=== PATIENT | female | born 1960 | race Caucasian/White ===

== ENCOUNTER 2019-02-27 19:39 | Inpatient (IN) | payer SELFPAY ==
[~2019-02-27] VITALS: Ht 172.7 cm; Wt 107.8 kg
[~2019-02-27 19:39] MED LIST: AMOX1TAB10 PO; HYDR-4011 PO; IBUP-1542 PO
[2019-02-27 19:43] VITALS: Ht 172.7 cm; Wt 107.8 kg
--- NOTE | 2019-02-27 20:48 | ERD ---
ER Documentation Chief Complaint Chief Complaint R ear pain and ST x 1 week HPI 58-year-old female, previously healthy, presents the emergency department, complaining of 1 week of progressive worsening of right ear pain, described as throbbing, constant, associated with hearing loss, sore throat and headache; the symptoms are worsened by changes in position. The patient reports sudden onset of right ear drainage today. Mrs. Lafleur denies fever, chills; no reports of dizziness, vertigo, neck pain, no nausea or vomiting. No history of previous episodes, no recent history of swimming or flying. ROS All systems reviewed and are negative except as per history of present illness. Medications Home Meds Active Scripts Hydrocodone/Acetaminophen ([place] 5-325 Tablet) 1 Each Tablet, 1 TAB PO Q6H PRN for PAIN, #12 TAB Prov:TRES FIGUEROA MD 02/27/19 Ibuprofen* (Motrin*) 600 Mg Tab, 600 MG PO Q8, #20 TAB Prov:TRES FIGUEROA MD 02/27/19 Amoxicillin/Potassium Clav (Amox-Clav 875-125 mg Tablet) 875-125 mg Tab, 1 TAB PO BID for 7 Days, #14 TAB Prov:TRES FIGUEROA MD 02/27/19 Allergies Allergies: Coded Allergies: No Known Allergy (Unverified , 02/27/19) PMhx/Soc Medical and Surgical Hx: pt denies Medical Hx, pt denies Surgical Hx Hx Alcohol Use: No Hx Substance Use: No Hx Tobacco Use: No Smoking Status: Never smoker FmHx Family History: No diabetes, No coronary disease Physical Exam Vitals Vital Signs Date Temp Pulse Resp B/P (MAP) Pulse Ox O2 O2 Flow FiO2 Time Delivery Rate 02/28/19 90 18 140/77 100 Room Air 11:00 (98) 90 02/28/19 90 18 116/77 100 Room Air 07:00 (90) 02/28/19 69 16 117/68 95 Nasal 3.0 05:54 (84) Cannula 02/28/19 98.8 92 19 127/71 96 Room Air 00:25 (89) 02/27/19 97.0 115 24 133/79 96 19:43 (97) Physical Exam Patient alert, oriented, vital signs stable except for mild tachycardia, likely due to pain. HEENT: Normocephalic, atraumatic. EYES: PERRLA, EOMI, Sclera and conjunctiva appear normal. EARS: right ear with significant effusion, unable to visualize TM, tenderness over the TMJ area. Contralateral ear normal. THROAT: Erythematous oropharynx. NECK: Supple, No lymphadenopathy. Full ROM without pain or tenderness. HEART: RRR, no rubs, murmurs, clicks or gallops. LUNGS: Clear to auscultation. ABDOMEN: Soft, non-tender without masses or hepatosplenomegaly. EXTREMITIES: No edema bilaterally. BACK: Full ROM, no deformity, normal back exam NEURO: Cranial nerves grossly intact, no motor or sensory deficit Result Diagram: 02/28/195 02/28/195 Results 24 hrs Laboratory Tests Test 02/28/19 00:23 02/28/19 04:15 White Blood Count 19.4 10^3/ul 13.3 10^3/ul Red Blood Count 4.88 10^6/ul 4.58 10^6/ul Hemoglobin 15.2 g/dl 14.3 g/dl Hematocrit 45.1 % 41.9 % Mean Corpuscular Volume 92.4 fl 91.5 fl Mean Corpuscular Hemoglobin 31.1 pg 31.2 pg Mean Corpuscular Hemoglobin Concent 33.7 g/dl 34.1 g/dl Red Cell Distribution Width 12.0 % 12.2 % Platelet Count 182 10^3/UL 151 10^3/UL Mean Platelet Volume 11.5 fl 11.7 fl Immature Granulocytes % 0.600 % 0.500 % Neutrophils % 85.9 % 81.2 % Lymphocytes % 8.4 % 10.7 % Monocytes % 4.7 % 6.9 % Eosinophils % 0.1 % 0.3 % Basophils % 0.3 % 0.4 % Nucleated Red Blood Cells % 0.0 /100WBC 0.0 /100WBC Immature Granulocytes # 0.110 10^3/ul 0.060 10^3/ul Neutrophils # 16.7 10^3/ul 10.8 10^3/ul Lymphocytes # 1.6 10^3/ul 1.4 10^3/ul Monocytes # 0.9 10^3/ul 0.9 10^3/ul Eosinophils # 0.0 10^3/ul 0.0 10^3/ul Basophils # 0.1 10^3/ul 0.1 10^3/ul Nucleated Red Blood Cells # 0.0 10^3/ul 0.0 10^3/ul Sodium Level 140 mmol/L 140 mmol/L Potassium Level 4.2 mmol/L 3.8 mmol/L Chloride Level 102 mmol/L 103 mmol/L Carbon Dioxide Level 30 mmol/L 27 mmol/L Anion Gap 8 10 Blood Urea Nitrogen 11 mg/dl 12 mg/dl Creatinine 0.70 mg/dl 0.69 mg/dl Est Glomerular Filtrat Rate mL/min > 60 mL/min > 60 mL/min Glucose Level 133 mg/dl 138 mg/dl Calcium Level 9.8 mg/dl 9.7 mg/dl Total Bilirubin 0.8 mg/dl 0.9 mg/dl Direct Bilirubin 0.00 mg/dl 0.00 mg/dl Indirect Bilirubin 0.8 mg/dl 0.9 mg/dl Aspartate Amino Transf (AST/SGOT) 33 IU/L 29 IU/L Alanine Aminotransferase (ALT/SGPT) 50 IU/L 44 IU/L Alkaline Phosphatase 67 IU/L 66 IU/L Total Protein 8.3 g/dl 7.9 g/dl Albumin 4.6 g/dl 4.4 g/dl Globulin 3.70 g/dl 3.50 g/dl Albumin/Globulin Ratio 1.24 1.25 Prothrombin Time 14.6 Sec Prothrombin Time Ratio 1.1 INR International Normalized Ratio 1.13 Activated Partial Thromboplast Time 30.7 Sec Hemoglobin A1c 6.1 % Lactic Acid Level 1.0 mmol/L Triglycerides Level 92 mg/dl Cholesterol Level 182 mg/dl LDL Cholesterol, Calculated 121 mg/dl HDL Cholesterol 43 mg/dl Cholesterol/HDL Ratio 4.2 RATIO Thyroid Stimulating Hormone (TSH) 7.500 MIU/L Current Medications Medications Dose Sig/Tha Start Time Status Last (Trade) Ordered Route PRN Stop Time Admin Dose Reason Admin 1 tab ONCE ONCE 02/27/19 Cancel Acetaminophen PO 21:30 02/27/19 / 21:31 Hydrocodone Bitart ([place] (5/325)) Ibuprofen 600 mg ONCE ONCE 02/27/19 Cancel (Motrin) PO 21:30 02/27/19 21:31 Ondansetron 4 mg ONCE STAT 02/27/19 Cancel HCl (Zofran ODT 21:14 02/27/19 Odt) 21:15 Clindamycin 50 ml @ 50 ONCE IVPB 02/27/19 DC 02/27/19 HCl/ mls/hr 21:30 02/27/19 22:15 Dextrose 22:29 Ketorolac 15 mg ONCE STAT 02/27/19 DC 02/27/19 Tromethamine IV 21:28 02/27/19 21:40 (Toradol) 21:37 Morphine 2 mg ONCE STAT 02/27/19 DC 02/27/19 Sulfate IV 21:28 02/27/19 21:41 (morphine) 21:36 Ondansetron 4 mg ONCE STAT 02/27/19 DC 02/27/19 HCl (Zofran IV 21:28 02/27/19 21:40 Inj) 21:36 Morphine 4 mg ONCE STAT 02/28/19 DC 02/28/19 Sulfate IV 00:14 02/28/19 00:24 (morphine) 00:15 Ondansetron 4 mg BRIDGE ORDER 02/28/19 HCl (Zofran PRN IV 03:30 03/01/19 Inj) NAUSEA/VOMITI 03:29 NG 650 mg ER BRIDGE 02/28/19 Acetaminophen PRN PO 03:30 03/01/19 (Tylenol .MILD PAIN 03:29 Tab) 1-3 OR TEMP Vancomycin VANCOMYCIN PER 02/28/19 HCl (Vanco PER PHARMACY PROTOCOL XX 04:00 Iv Per Pharmacy) Piperacillin 100 ml @ Q6 IVPB 02/28/19 DC Sod/ 200 mls/hr 06:00 02/28/19 Tazobactam 09:28 Sod Vancomycin 500 ml @ ONCE ONCE 02/28/19 DC 02/28/19 HCl 2 125 mls/hr IVPB 05:00 02/28/19 05:52 gm/Sodium 08:59 Chloride Sodium 1,000 ml @ [id number] IV 02/28/19 02/28/19 Chloride 70 mls/hr 03:43 10:30 IV Flush 3 ml PER 02/28/19 (NS 3 ml) PROTOCOL IV 04:00 Ondansetron 4 mg Q6H PRN 02/28/19 HCl (Zofran IV 04:00 Inj) NAUSEA/VOMITI NG 650 mg Q6H PRN 02/28/19 Acetaminophen PO .PAIN 1-3 04:00 (Tylenol OR TEMP Tab) 1 tab Q6H PRN 02/28/19 Acetaminophen PO .MOD PAIN 04:00 / 4-6 Hydrocodone Bitart ([place] (5/325)) Morphine 2 mg Q4H PRN 02/28/19 02/28/19 Sulfate IV .SEVERE 04:00 09:43 (morphine) PAIN 7-10 Docusate 100 mg Q12H PRN 02/28/19 Sodium PO 04:00 (Colace) .CONSTIPATION Bisacodyl 5 mg DAILY PRN 02/28/19 (Dulcolax) PO 04:00 .CONSTIPATION 250 ml @ Q24H IVPB 02/28/19 Vancomycin/So 83.333 mls/ 17:00 dium hr Chloride VANCOMYCIN 1600 ONCE 03/01/19 Miscellaneous TROUGH LEVEL XX 16:00 03/01/19 16:01 Information (*Rx Drug Level Order Reminder*) Ketorolac 15 mg ONCE STAT 02/28/19 DC 02/28/19 Tromethamine IV 04:30 02/28/19 04:40 (Toradol) 04:34 Ketorolac 15 mg Q6H PRN 02/28/19 Tromethamine IV PAIN 07:30 (Toradol) 03/03/19 07:29 Piperacillin 100 ml @ Q6 IVPB 02/28/19 02/28/19 Sod/ 200 mls/hr 09:30 09:29 Tazobactam Sod Patient: MADIE LAFLEUR : 1960 Age: 58 Sex: F MR #: [id number] DOS: 02/27/192113 Ordering MD: TRES FIGUEROA MD Location: [facility] Room/Bed: PROCEDURE: CT temporal bones/IACs without contrast. CLINICAL INDICATION: Right ear perforation, possible mastoiditis TECHNIQUE: A CT of the temporal bones was performed on a multi-slice CT scanner utilizing axial imaging from the skull base through the petrous ridges without IV contrast. Coronal and sagittal re-formations were created. Images were reviewed on a PACS workstation. The CTDIvol is 29 mGy and the DLP is 441 mGycm. DICOM images are available. 3-D reconstructions were not performed. One or more of the following dose reduction techniques were utilized: 1.) Automated exposure control 2.) Adjustment of the mA +/- kV according to patient's size 3.) Use of iterative reconstruction technique. COMPARISON: None FINDINGS: Mastoid air cells: Mostly opacified on the right, clear on the left. Antrum: Fluid and/or soft tissue attenuation material in the right antrum. Clear on the left Internal auditory canals: Symmetric and unremarkable. Mesotympanic cavities: Fluid/soft tissue attenuation material on the right, clear on the left. A portion of the right tympanic membrane is visible, thickened. External auditory canals: Soft tissue thickening along the right external auditory canal particularly laterally. Some type of material is present within the canal. The external auditory canal is normal on the left. External soft tissues: Unremarkable. IMPRESSION: 1. Right mastoiditis with findings compatible with right otitis media and otitis externa. Procedures/MDM Vital signs stable, differential diagnosis include but not limited to: infection bacterial/viral/fungal, mastoiditis, malignant otitis, Tonsillitis, eustachian dysfunction, allergies, foreign body, cholesteatoma. Less likely meningitis. Physical examination and clinical presentation consistent most likely with right mastoiditis. During the ED course the patient remained stable, no new complaints. Clinical impression discussed with the patient who agrees with management. The patient is stable to be admitted in med-surg for IV antibiotics. Disclaimer: Inadvertent spelling and grammatical errors are likely due to EHR/dictation software use and do not reflect on the overall quality of patient care. Also, please note that the electronic time recorded on this note does not necessarily reflect the actual time of the patient encounter. Departure Diagnosis: Primary Impression: Mastoiditis of right side Condition: Stable TRES FIGUEROA MD Feb 27, 2019 20:48
[2019-02-27] MEDS ORDERED: ONDANSETRON (ODT) 4 MG TAB ODT STA (21:14)
[2019-02-27] MEDS ORDERED: KETOROLAC 15 MG INJ IV STA (21:28)
[2019-02-27] MEDS ORDERED: morphine 2 MG INJ IV STA (21:28)
[2019-02-27] MEDS ORDERED: ONDANSETRON 4 MG INJ IV STA (21:28)
[2019-02-27] MEDS ORDERED: IBUPROFEN 600 MG TAB PO ONE (21:30)
[2019-02-27] MEDS ORDERED: CLINDAMYCIN 600 MG/D5W (PMX) 50 ML IVPB SCH (21:30)
[2019-02-27] MEDS ORDERED: HYDROCODONE/APAP (5/325) TAB PO ONE (21:30)
[2019-02-28] MEDS ORDERED: morphine 4 MG/ML VIAL IV STA (00:14)
[2019-02-28] MEDS ORDERED: ACETAMINOPHEN 325 MG TAB PO PRN ×2 (03:30→04:00)
[2019-02-28] MEDS ORDERED: ONDANSETRON 4 MG INJ IV PRN ×2 (03:30→04:00)
[2019-02-28] MEDS ORDERED: BISACODYL (EC) 5 MG TAB PO PRN (04:00)
[2019-02-28] MEDS ORDERED: VANCOMYCIN IV PER PHARMACY XX SCH (04:00)
[2019-02-28] MEDS ORDERED: HYDROCODONE/APAP (5/325) TAB PO PRN (04:00)
[2019-02-28] MEDS ORDERED: DOCUSATE SODIUM 100 MG CAP PO PRN (04:00)
[2019-02-28] MEDS ORDERED: NACL 0.9% 3 ML SYG IV SCH (04:00)
[2019-02-28] MEDS ORDERED: KETOROLAC 15 MG INJ IV STA (04:30)
[2019-02-28] MEDS: morphine 2 MG INJ IV PRN ×4 (04:40→20:53)
[2019-02-28] MEDS ORDERED: VANCOMYCIN HCL 2 GM in SOD CHLORIDE 0.9% 500 ML IVPB ONE (05:00)
[2019-02-28] MEDS ORDERED: PIPER-TAZO 3.375 GM IV (PMX) 100 ML IVPB SCH (06:00)
--- NOTE | 2019-02-28 07:00 | HP ---
Date/Time of Note Date/Time of Note DATE: 02/28/19 TIME: 06:56 Assessment/Plan VTE Prophylaxis SCD applied (from Nsg): Yes Pharmacological prophylaxis: NA/contraindicated Pharm contraindication: low risk/ambulating Lines/Catheters IV Catheter Type (from Nrsg): [place] Assessment/Plan Hospital Course This is a 58-year-old female being admitted to the [facility] floor for: #1 sepsis: Secondary to underlying mastoiditis/acute otitis media. Unfortunately patient was started on clindamycin prior to having cultures performed. Nonetheless I will order blood cultures x2, urinalysis and a lactic acid level. I will initiate her on vancomycin and Zosyn. CT of the head orbits showed:Right mastoiditis with findings compatible with right otitis media and otitis externa. ENT Dr. Summers was consulted by the emergency department. We will continue pain management. #2 right-sided mastoiditis/acute otitis media: Vancomycin and Zosyn IV. #3 obesity: We will check hemoglobin A1c, lipid panel, TSH #4 DVT GI prophylaxis: SCDs, no GI prophylaxis indicated Further treatment strategy will be implemented as per the clinical course. Result Diagram: 02/28/19 0415 02/28/19 0415 Results 24hrs Laboratory Tests Test 02/28/19 00:23 02/28/19 04:15 White Blood Count 19.4 H 13.3 #H Red Blood Count 4.88 4.58 Hemoglobin 15.2 14.3 Hematocrit 45.1 41.9 Mean Corpuscular Volume 92.4 91.5 Mean Corpuscular Hemoglobin 31.1 31.2 Mean Corpuscular Hemoglobin Concent 33.7 34.1 Red Cell Distribution Width 12.0 12.2 Platelet Count 182 151 Mean Platelet Volume 11.5 H 11.7 H Immature Granulocytes % 0.600 H 0.500 H Neutrophils % 85.9 H 81.2 H Lymphocytes % 8.4 L 10.7 L Monocytes % 4.7 6.9 Eosinophils % 0.1 0.3 Basophils % 0.3 0.4 Nucleated Red Blood Cells % 0.0 0.0 Immature Granulocytes # 0.110 H 0.060 H Neutrophils # 16.7 H 10.8 H Lymphocytes # 1.6 1.4 Monocytes # 0.9 0.9 Eosinophils # 0.0 0.0 Basophils # 0.1 0.1 Nucleated Red Blood Cells # 0.0 0.0 Sodium Level 140 140 Potassium Level 4.2 3.8 Chloride Level 102 103 Carbon Dioxide Level 30 27 Anion Gap 8 10 Blood Urea Nitrogen 11 12 Creatinine 0.70 0.69 Est Glomerular Filtrat Rate mL/min > 60 > 60 Glucose Level 133 138 Calcium Level 9.8 9.7 Total Bilirubin 0.8 0.9 Direct Bilirubin 0.00 0.00 Indirect Bilirubin 0.8 0.9 Aspartate Amino Transf (AST/SGOT) 33 29 Alanine Aminotransferase (ALT/SGPT) 50 44 Alkaline Phosphatase 67 66 Total Protein 8.3 H 7.9 Albumin 4.6 4.4 Globulin 3.70 H 3.50 H Albumin/Globulin Ratio 1.24 1.25 Prothrombin Time 14.6 Prothrombin Time Ratio 1.1 INR International Normalized Ratio 1.13 Activated Partial Thromboplast Time 30.7 Hemoglobin A1c 6.1 H Lactic Acid Level 1.0 Triglycerides Level 92 Cholesterol Level 182 LDL Cholesterol, Calculated 121 HDL Cholesterol 43 Cholesterol/HDL Ratio 4.2 Thyroid Stimulating Hormone (TSH) 7.500 H HPI/ROS Admit Date/Time Admit Date/Time Hx of Present Illness Chief complaint: Right ear pain x x1 week, discharge x1 day This is a 58-year-old female with no significant past medical history who presented to the emergency department with right ear pain and bloody drainage. Patient reports that she was dealing with an upper respiratory infection since Monday. She started feeling pressure in her right ear which gradually got worse. She noted prior to arrival to the emergency department that she had a bloody discharge coming out of her right ear. She did report diminished hearing on the right side. She also reports that she has pain along the right side of her face and below the jaw. Denies any nausea vomiting or diarrhea. Denies any fevers. Allergies: NKDA medications: None ROS Const: As per HPI Eyes : No pain discharge or redness or change in visual acuity ENT: As per HPI Respiratory: No shortness of breath, cough, sputum, wheezing, or pleuritic pain Cardiovascular: No chest pain, palpitation, PND, or edema GI : no change in appetite, abdominal pain, nausea, vomiting, diarrhea, constipation, or change in the color his stool Genitourinary: No dysuria, hematuria, flank pain , discharge or CVA tenderness Musculoskeletal: No joint pain, back pain, neck pain, restricted range of motion in neck or joints Skin: No rash, bruising or hives Neuro: No headache, dizziness, syncope, seizure, focal weakness Endocrine: No polyuria, polydipsia, temperature intolerance Psych: No hallucination, depression, anxiety or suicidal ideation PMH/Family/Social Past Medical History Medical History: no pertinent history Medications Current Medications Ondansetron HCl (Zofran Inj) 4 mg BRIDGE ORDER PRN IV NAUSEA/VOMITING; Start 02/28/19 at 03:30; Stop 03/01/19 at 03:29 Acetaminophen (Tylenol Tab) 650 mg ER BRIDGE PRN PO .MILD PAIN 1-3 OR TEMP; Start 02/28/19 at 03:30; Stop 03/01/19 at 03:29 Vancomycin HCl (Vanco Iv Per Pharmacy) VANCOMYCIN PER PHARMACY PER PROTOCOL XX ; Start 02/28/19 at 04:00 Piperacillin Sod/ Tazobactam Sod 100 ml @ 200 mls/hr Q6 IVPB ; Start 02/28/19 at 06:00 Vancomycin HCl 2 gm/Sodium Chloride 500 ml @ 125 mls/hr ONCE ONCE IVPB Last administered on 02/28/19at 05:52; Admin Dose 125 MLS/HR; Start 02/28/19 at 05:00; Stop 02/28/19 at 08:59 Sodium Chloride 1,000 ml @ 70 mls/hr [id number] IV ; Start 02/28/19 at 03:43 IV Flush (NS 3 ml) 3 ml PER PROTOCOL IV ; Start 02/28/19 at 04:00 Ondansetron HCl (Zofran Inj) 4 mg Q6H PRN IV NAUSEA/VOMITING; Start 02/28/19 at 04:00 Acetaminophen (Tylenol Tab) 650 mg Q6H PRN PO .PAIN 1-3 OR TEMP; Start 02/28/19 at 04:00 Acetaminophen/ Hydrocodone Bitart ([place] (5/325)) 1 tab Q6H PRN PO .MOD PAIN 4- 6; Start 02/28/19 at 04:00 Morphine Sulfate (morphine) 2 mg Q4H PRN IV .SEVERE PAIN 7-10 Last administered on 02/28/19at 04:40; Admin Dose 2 MG; Start 02/28/19 at 04:00 Docusate Sodium (Colace) 100 mg Q12H PRN PO .CONSTIPATION; Start 02/28/19 at 04:00 Bisacodyl (Dulcolax) 5 mg DAILY PRN PO .CONSTIPATION; Start 02/28/19 at 04:00 Vancomycin/Sodium Chloride 250 ml @ 83.333 mls/ hr Q24H IVPB ; Start 02/28/19 at 17:00 Miscellaneous Information (*Rx Drug Level Order Reminder*) VANCOMYCIN TROUGH LEVEL 1600 ONCE XX ; Start 03/01/19 at 16:00; Stop 03/01/19 at 16:01 Coded Allergies: No Known Allergy (Unverified , 02/27/19) Past Surgical History Past Surgical Hx: no surgical history Family History Significant Family History: no pertinent family hx Social History Alcohol Use: none Smoking Status: Current every day smoker Exam/Review of Systems Vital Signs Vitals Vital Signs Date Temp Pulse Resp B/P (MAP) Pulse Ox O2 O2 Flow FiO2 Time Delivery Rate 02/28/19 69 16 117/68 95 Nasal 3.0 05:54 (84) Cannula 02/28/19 98.8 00:25 Exam Exam General: Patient is currently lying in bed, she does appear to be in discomfort from her right ear pain and discharge. HEENT: Right ear effusion with bloody discharge noted, tympanic membrane unable to be visualized given the degree of fluid in the right ear canal., Tender to palpation along the right side of the face/mandibular region. No crepitus Neck: Supple with full range of motion. No rigidity or meningismus Chest: Nontender Lungs: Clear to auscultation bilaterally no crackles rales or wheezing Heart: Normal S1-S2, Regular rhythm and rate. No murmur, S3, or S4 Abdomen: Obese, soft , nontender, nondistended , bowel sounds are present. No guarding no rebound tenderness , No masses or organomegaly. No costovertebral temporal angle mass Extremities: Normal to inspection, no edema no cyanosis Neurologic: Normal mental status, speech normal, cranial nerves II through XII are intact, motor and sensory are intact, Additional Comments PROCEDURE: CT temporal bones/IACs without contrast. CLINICAL INDICATION: Right ear perforation, possible mastoiditis TECHNIQUE: A CT of the temporal bones was performed on a multi-slice CT scanner utilizing axial imaging from the skull base through the petrous ridges without IV contrast. Coronal and sagittal re-formations were created. Images were reviewed on a PACS workstation. The CTDIvol is 29 mGy and the DLP is 441 mGycm. DICOM images are available. 3-D reconstructions were not performed. One or more of the following dose reduction techniques were utilized: 1.) Automated exposure control 2.) Adjustment of the mA +/- kV according to patient's size 3.) Use of iterative reconstruction technique. COMPARISON: None FINDINGS: Mastoid air cells: Mostly opacified on the right, clear on the left. Antrum: Fluid and/or soft tissue attenuation material in the right antrum. Clear on the left Internal auditory canals: Symmetric and unremarkable. Mesotympanic cavities: Fluid/soft tissue attenuation material on the right, clear on the left. A portion of the right tympanic membrane is visible, thickened. External auditory canals: Soft tissue thickening along the right external auditory canal particularly laterally. Some type of material is present within the canal. The external auditory canal is normal on the left. External soft tissues: Unremarkable. IMPRESSION: 1. Right mastoiditis with findings compatible with right otitis media and otitis externa. RPTAT:AAJJ Physician Lucy Date Time Electronically viewed and signed by Physician Lucy on 02/27/2019 22:25 GW/ CC: TRES FIGUEROA MD [id number] PROCEDURE: Single view chest. CLINICAL INDICATION: Chest pain TECHNIQUE: Single view of the chest was obtained COMPARISON: None FINDINGS: Mild central bronchial wall thickening without confluent air space consolidation or evidence of an effusion. There is no pneumothorax. Cardiac silhouette and mediastinal contours are unremarkable. Regional bones appear intact. IMPRESSION: Mild central bronchial wall thickening compatible with airways inflammation versus trace edema or chronic senescent changes. RPTAT: HJBB Dina Burgos Physician Date Time Electronically viewed and signed by Dina Burgos Physician on 02/28/2019 04:22 xB/ CC: TC CARR [id number] TC CARR Feb 28, 2019 07:00
[2019-02-28] MEDS: PIPER-TAZO 3.375 GM IV (PMX) 100 ML IVPB SCH ×4 (09:29→23:32)
[2019-02-28] MEDS: SOD CHLORIDE 0.9% 1,000 ML IV SCH ×2 (10:30→18:01)
[2019-02-28 14:53] VITALS: BP 134/77; PULSE 75
--- NOTE | 2019-02-28 15:11 | PN ---
Date/Time of Note Date/Time of Note DATE: 02/28/19 TIME: 15:09 Assessment/Plan VTE Prophylaxis SCD applied (from Nsg): Yes SCD contraindicated: low risk/ambulating Pharmacological prophylaxis: NA/contraindicated Pharm contraindication: low risk/ambulating Lines/Catheters IV Catheter Type (from Nrsg): Saline Lock Assessment/Plan Hospital Course A/P 1. Sepsis; cont atb 2. Rt Mastoiditis w otitis 3. Tobacco abuse 4. Recent URI S: events noted O: vss PE no pallor reg s1s2 no mrg ctab bs+ nt nd no r r g no edema Result Diagram: 02/28/195 02/28/19414 Results 24hrs Laboratory Tests Test 02/28/19 00:23 02/28/19 04:15 White Blood Count 19.4 H 13.3 #H Red Blood Count 4.88 4.58 Hemoglobin 15.2 14.3 Hematocrit 45.1 41.9 Mean Corpuscular Volume 92.4 91.5 Mean Corpuscular Hemoglobin 31.1 31.2 Mean Corpuscular Hemoglobin Concent 33.7 34.1 Red Cell Distribution Width 12.0 12.2 Platelet Count 182 151 Mean Platelet Volume 11.5 H 11.7 H Immature Granulocytes % 0.600 H 0.500 H Neutrophils % 85.9 H 81.2 H Lymphocytes % 8.4 L 10.7 L Monocytes % 4.7 6.9 Eosinophils % 0.1 0.3 Basophils % 0.3 0.4 Nucleated Red Blood Cells % 0.0 0.0 Immature Granulocytes # 0.110 H 0.060 H Neutrophils # 16.7 H 10.8 H Lymphocytes # 1.6 1.4 Monocytes # 0.9 0.9 Eosinophils # 0.0 0.0 Basophils # 0.1 0.1 Nucleated Red Blood Cells # 0.0 0.0 Sodium Level 140 140 Potassium Level 4.2 3.8 Chloride Level 102 103 Carbon Dioxide Level 30 27 Anion Gap 8 10 Blood Urea Nitrogen 11 12 Creatinine 0.70 0.69 Est Glomerular Filtrat Rate mL/min > 60 > 60 Glucose Level 133 138 Calcium Level 9.8 9.7 Total Bilirubin 0.8 0.9 Direct Bilirubin 0.00 0.00 Indirect Bilirubin 0.8 0.9 Aspartate Amino Transf (AST/SGOT) 33 29 Alanine Aminotransferase (ALT/SGPT) 50 44 Alkaline Phosphatase 67 66 Total Protein 8.3 H 7.9 Albumin 4.6 4.4 Globulin 3.70 H 3.50 H Albumin/Globulin Ratio 1.24 1.25 Prothrombin Time 14.6 Prothrombin Time Ratio 1.1 INR International Normalized Ratio 1.13 Activated Partial Thromboplast Time 30.7 Hemoglobin A1c 6.1 H Lactic Acid Level 1.0 Triglycerides Level 92 Cholesterol Level 182 LDL Cholesterol, Calculated 121 HDL Cholesterol 43 Cholesterol/HDL Ratio 4.2 Thyroid Stimulating Hormone (TSH) 7.500 H Exam/Review of Systems Exam Vitals Vital Signs Date Temp Pulse Resp B/P (MAP) Pulse Ox O2 O2 Flow FiO2 Time Delivery Rate 02/28/19 97.5 75 134/77 91 Room Air 14:53 (96) 02/28/19 18 11:00 02/28/19 3.0 05:54 Results Results 24hrs Laboratory Tests Test 02/28/19 00:23 02/28/19 04:15 White Blood Count 19.4 H 13.3 #H Red Blood Count 4.88 4.58 Hemoglobin 15.2 14.3 Hematocrit 45.1 41.9 Mean Corpuscular Volume 92.4 91.5 Mean Corpuscular Hemoglobin 31.1 31.2 Mean Corpuscular Hemoglobin Concent 33.7 34.1 Red Cell Distribution Width 12.0 12.2 Platelet Count 182 151 Mean Platelet Volume 11.5 H 11.7 H Immature Granulocytes % 0.600 H 0.500 H Neutrophils % 85.9 H 81.2 H Lymphocytes % 8.4 L 10.7 L Monocytes % 4.7 6.9 Eosinophils % 0.1 0.3 Basophils % 0.3 0.4 Nucleated Red Blood Cells % 0.0 0.0 Immature Granulocytes # 0.110 H 0.060 H Neutrophils # 16.7 H 10.8 H Lymphocytes # 1.6 1.4 Monocytes # 0.9 0.9 Eosinophils # 0.0 0.0 Basophils # 0.1 0.1 Nucleated Red Blood Cells # 0.0 0.0 Sodium Level 140 140 Potassium Level 4.2 3.8 Chloride Level 102 103 Carbon Dioxide Level 30 27 Anion Gap 8 10 Blood Urea Nitrogen 11 12 Creatinine 0.70 0.69 Est Glomerular Filtrat Rate mL/min > 60 > 60 Glucose Level 133 138 Calcium Level 9.8 9.7 Total Bilirubin 0.8 0.9 Direct Bilirubin 0.00 0.00 Indirect Bilirubin 0.8 0.9 Aspartate Amino Transf (AST/SGOT) 33 29 Alanine Aminotransferase (ALT/SGPT) 50 44 Alkaline Phosphatase 67 66 Total Protein 8.3 H 7.9 Albumin 4.6 4.4 Globulin 3.70 H 3.50 H Albumin/Globulin Ratio 1.24 1.25 Prothrombin Time 14.6 Prothrombin Time Ratio 1.1 INR International Normalized Ratio 1.13 Activated Partial Thromboplast Time 30.7 Hemoglobin A1c 6.1 H Lactic Acid Level 1.0 Triglycerides Level 92 Cholesterol Level 182 LDL Cholesterol, Calculated 121 HDL Cholesterol 43 Cholesterol/HDL Ratio 4.2 Thyroid Stimulating Hormone (TSH) 7.500 H Medications Medication Current Medications Ondansetron HCl (Zofran Inj) 4 mg BRIDGE ORDER PRN IV NAUSEA/VOMITING; Start 02/28/19 at 03:30; Stop 03/01/19 at 03:29 Acetaminophen (Tylenol Tab) 650 mg ER BRIDGE PRN PO .MILD PAIN 1-3 OR TEMP; Start 02/28/19 at 03:30; Stop 03/01/19 at 03:29 Vancomycin HCl (Vanco Iv Per Pharmacy) VANCOMYCIN PER PHARMACY PER PROTOCOL XX ; Start 02/28/19 at 04:00 Sodium Chloride 1,000 ml @ 70 mls/hr [id number] IV Last administered on 02/28/19at 10:30; Admin Dose 70 MLS/HR; Start 02/28/19 at 03:43 IV Flush (NS 3 ml) 3 ml PER PROTOCOL IV ; Start 02/28/19 at 04:00 Ondansetron HCl (Zofran Inj) 4 mg Q6H PRN IV NAUSEA/VOMITING; Start 02/28/19 at 04:00 Acetaminophen (Tylenol Tab) 650 mg Q6H PRN PO .PAIN 1-3 OR TEMP; Start 02/28/19 at 04:00 Acetaminophen/ Hydrocodone Bitart ([place] (5/325)) 1 tab Q6H PRN PO .MOD PAIN 4- 6; Start 02/28/19 at 04:00 Morphine Sulfate (morphine) 2 mg Q4H PRN IV .SEVERE PAIN 7-10 Last administered on 02/28/19at 14:14; Admin Dose 2 MG; Start 02/28/19 at 04:00 Docusate Sodium (Colace) 100 mg Q12H PRN PO .CONSTIPATION; Start 02/28/19 at 04:00 Bisacodyl (Dulcolax) 5 mg DAILY PRN PO .CONSTIPATION; Start 02/28/19 at 04:00 Vancomycin/Sodium Chloride 250 ml @ 83.333 mls/ hr Q24H IVPB ; Start 02/28/19 at 17:00 Miscellaneous Information (*Rx Drug Level Order Reminder*) VANCOMYCIN TROUGH LEVEL 1600 ONCE XX ; Start 03/01/19 at 16:00; Stop 03/01/19 at 16:01 Ketorolac Tromethamine (Toradol) 15 mg Q6H PRN IV PAIN; Start 02/28/19 at 07:30; Stop 03/03/19 at 07:29 Piperacillin Sod/ Tazobactam Sod 100 ml @ 200 mls/hr Q6 IVPB Last administered on 02/28/19at 14:18; Admin Dose 200 MLS/HR; Start 02/28/19 at 09:30 MORALES DEGROOT MD Feb 28, 2019 15:11
--- NOTE | 2019-02-28 16:30 | CONS ---
DATE OF ADMISSION: 02/28/2019 DATE OF CONSULTATION: 02/28/2019 TYPE OF CONSULTATION: ENT HISTORY OF PRESENT ILLNESS: Lia Lafleur is a 58-year-old female who presented with right-sided ear pain and drainage. ENT was consulted to evaluate it. She is being admitted for possible mastoiditis . PAST MEDICAL HISTORY: Negative for any heart, lung, kidney, thyroid, liver disease. PAST SURGICAL HISTORY: None. ALLERGIES: NO KNOWN DRUG ALLERGIES. MEDICATION LIST: Shows the patient is on no active medicines at home. SOCIAL HISTORY: Negative for tobacco, alcohol or drug abuse. FAMILY HISTORY: Mother is still alive and well. Father young from possible sequelae of polio. REVIEW OF SYSTEMS: A 12-point review of systems was otherwise noncontributory. PHYSICAL EXAMINATION: HEENT: On examination today, the left canal is clear. The eardrums are intact. There is no fluid, erythema, infection. In the right ear however, there is a canal filled with pus, so I could not visu chang the ear drum. There is very mild tenderness of the mastoid, although there is no edema or eryt eric overlying that area. The nose shows a midline septum, mucosa without erythema or edema. Oral c avity and oropharynx showed tongue and mouth are normal. NECK: Shows no lymphadenopathy or thyromegaly. Trachea is midline. IMPRESSION: Right acute otitis media with perforation. PLAN: At this point, I would add topical antibiotic drops to her intravenous antibiotics. I would s uggest using Ciprodex 4 drops twice daily. If there are any questions or concerns, please feel free to reconsult at any time. Dictated By: AREN DON MD DM/NTS Conf#: [id number] DID#: [id number] CC: TC CARR MD;*EndCC*
[2019-02-28] MEDS: VANCOMYCIN 1.5 GM/NS 250 ML 250 ML IVPB SCH (20:11)
[2019-02-28 21:46] VITALS: BP 120/59; PULSE 74
[2019-03-01 02:33] VITALS: BP 122/71; PULSE 77
[2019-03-01] MEDS ORDERED: VANCOMYCIN 1.5 GM/NS 250 ML 250 ML IVPB SCH (05:00)
[2019-03-01] MEDS: PIPER-TAZO 3.375 GM IV (PMX) 100 ML IVPB SCH ×4 (05:12→23:51)
[2019-03-01] MEDS: HYDROCODONE/APAP (10/325) TAB PO PRN ×3 (05:13→23:51)
[2019-03-01] MEDS: VANCOMYCIN 1.5 GM/NS 250 ML 250 ML IVPB SCH ×2 (06:15→18:10)
[2019-03-01 08:00] VITALS: BP 101/56; PULSE 75; RESP 18
[2019-03-01] MEDS: SOD CHLORIDE 0.9% 1,000 ML IV SCH (08:18)
[2019-03-01] MEDS: CIPROFLOXACIN HCL OTIC DROP 0.25 ML RIGHT EAR SCH ×2 (09:56→20:16)
[2019-03-01] MEDS: KETOROLAC 15 MG INJ IV PRN ×2 (10:30→20:16)
--- NOTE | 2019-03-01 13:11 | PN ---
Date/Time of Note Date/Time of Note DATE: 03/01/19 TIME: 13:11 Assessment/Plan VTE Prophylaxis Risk score (from [facility] [place])>0 risk: 4 SCD applied (from [facility] [place]): Yes SCD contraindicated: low risk/ambulating Pharmacological prophylaxis: LMWH Pharm contraindication: low risk/ambulating Lines/Catheters IV C[facility] Type (from [facility] Saline Lock Assessment/Plan Hospital Course A/P 1. Sepsis; cont atb 2. Rt Mastoiditis w otitis 3. Tobacco abuse 4. Recent URI S: 02/28 events noted 03/01: No distress. No fever. Tolerating antibiotics possibly home tomorrow on oral antibiotics O: vss PE no pallor reg s1s2 no mrg ctab bs+ nt nd no r r g no edema Result Diagram: 03/01/1918 03/01/1918 Results 24hrs Laboratory Tests Test 03/01/19 05:18 White Blood Count 9.1 # Red Blood Count 4.38 Hemoglobin 13.5 Hematocrit 41.6 Mean Corpuscular Volume 95.0 Mean Corpuscular Hemoglobin 30.8 Mean Corpuscular Hemoglobin Concent 32.5 Red Cell Distribution Width 12.5 Platelet Count 154 Mean Platelet Volume 12.1 H Immature Granulocytes % 0.600 H Neutrophils % 70.7 Lymphocytes % 20.7 Monocytes % 6.6 Eosinophils % 1.0 Basophils % 0.4 Nucleated Red Blood Cells % 0.0 Immature Granulocytes # 0.050 H Neutrophils # 6.4 Lymphocytes # 1.9 Monocytes # 0.6 Eosinophils # 0.1 Basophils # 0.0 Nucleated Red Blood Cells # 0.0 Sodium Level 140 Potassium Level 4.5 Chloride Level 104 Carbon Dioxide Level 29 Anion Gap 7 Blood Urea Nitrogen 11 Creatinine 0.78 Est Glomerular Filtrat Rate mL/min > 60 Glucose Level 122 Calcium Level 9.4 Total Bilirubin 0.8 Direct Bilirubin 0.00 Indirect Bilirubin 0.8 Aspartate Amino Transf (AST/SGOT) 34 Alanine Aminotransferase (ALT/SGPT) 44 Alkaline Phosphatase 63 Total Protein 7.5 Albumin 4.1 Globulin 3.40 H Albumin/Globulin Ratio 1.20 Free Thyroxine 0.93 Total Triiodothyronine 1.12 Exam/Review of Systems Exam Vitals Vital Signs Date Temp Pulse Resp B/P (MAP) Pulse Ox O2 O2 Flow FiO2 Time Delivery Rate 03/01/19 98.8 75 18 101/56 94 08:00 (71) 03/01/19 Room Air 02:33 02/28/19 3.0 05:54 Intake and Output 02/28/19 02/28/19 03/01/19 1515:00 23:00 07:00 IntakeIntake Total 700 ml 1420 ml BalanceBalance 700 ml 1420 ml Results Results 24hrs Laboratory Tests Test 03/01/19 05:18 White Blood Count 9.1 # Red Blood Count 4.38 Hemoglobin 13.5 Hematocrit 41.6 Mean Corpuscular Volume 95.0 Mean Corpuscular Hemoglobin 30.8 Mean Corpuscular Hemoglobin Concent 32.5 Red Cell Distribution Width 12.5 Platelet Count 154 Mean Platelet Volume 12.1 H Immature Granulocytes % 0.600 H Neutrophils % 70.7 Lymphocytes % 20.7 Monocytes % 6.6 Eosinophils % 1.0 Basophils % 0.4 Nucleated Red Blood Cells % 0.0 Immature Granulocytes # 0.050 H Neutrophils # 6.4 Lymphocytes # 1.9 Monocytes # 0.6 Eosinophils # 0.1 Basophils # 0.0 Nucleated Red Blood Cells # 0.0 Sodium Level 140 Potassium Level 4.5 Chloride Level 104 Carbon Dioxide Level 29 Anion Gap 7 Blood Urea Nitrogen 11 Creatinine 0.78 Est Glomerular Filtrat Rate mL/min > 60 Glucose Level 122 Calcium Level 9.4 Total Bilirubin 0.8 Direct Bilirubin 0.00 Indirect Bilirubin 0.8 Aspartate Amino Transf (AST/SGOT) 34 Alanine Aminotransferase (ALT/SGPT) 44 Alkaline Phosphatase 63 Total Protein 7.5 Albumin 4.1 Globulin 3.40 H Albumin/Globulin Ratio 1.20 Free Thyroxine 0.93 Total Triiodothyronine 1.12 Medications Medication Current Medications Vancomycin HCl (Vanco Iv Per Pharmacy) VANCOMYCIN PER PHARMACY PER PROTOCOL XX ; Start 02/28/19 at 04:00 IV Flush (NS 3 ml) 3 ml PER PROTOCOL IV ; Start 02/28/19 at 04:00 Ondansetron HCl (Zofran Inj) 4 mg Q6H PRN IV NAUSEA/VOMITING; Start 02/28/19 at 04:00 Acetaminophen (Tylenol Tab) 650 mg Q6H PRN PO .PAIN 1-3 OR TEMP; Start 02/28/19 at 04:00 Morphine Sulfate (morphine) 2 mg Q4H PRN IV .SEVERE PAIN 7-10 Last administered on 02/28/19at 20:53; Admin Dose 2 MG; Start 02/28/19 at 04:00 Docusate Sodium (Colace) 100 mg Q12H PRN PO .CONSTIPATION; Start 02/28/19 at 04:00 Bisacodyl (Dulcolax) 5 mg DAILY PRN PO .CONSTIPATION; Start 02/28/19 at 04:00 Miscellaneous Information (*Rx Drug Level Order Reminder*) VANCOMYCIN TROUGH LEVEL 1600 ONCE XX ; Start 03/01/19 at 17:00; Stop 03/01/19 at 17:01 Ketorolac Tromethamine (Toradol) 15 mg Q6H PRN IV PAIN Last administered on 03/01/19at 10:30; Admin Dose 15 MG; Start 02/28/19 at 07:30; Stop 03/03/19 at 07:29 Piperacillin Sod/ Tazobactam Sod 100 ml @ 200 mls/hr Q6 IVPB Last administered on 03/01/19at 12:11; Admin Dose 200 MLS/HR; Start 02/28/19 at 09:30 Acetaminophen/ Hydrocodone Bitart ([place] (10/325)) 1 tab Q4H PRN PO MODERATE PAIN LEVEL 4-6 Last administered on 03/01/19at 05:13; Admin Dose 1 TAB; Start 02/28/19 at 15:30 Vancomycin/Sodium Chloride 250 ml @ 83.333 mls/ hr Q12H IVPB Last administered on 03/01/19at 06:15; Admin Dose 83.333 MLS/HR; Start 02/28/19 at 18:00 Ciprofloxacin HCl (Ciprofloxacin HCl Otic) 2 drop BID RIGHT EAR Last administered on 03/01/19at 09:56; Admin Dose 2 DROP; Start 03/01/19 at 09:00; Stop 03/08/19 at 23:00 MORALES DEGROOT MD Mar 01, 2019 13:11
[2019-03-01 14:00] VITALS: BP 115/73; PULSE 61; RESP 18
[2019-03-01 22:05] VITALS: BP 114/62; PULSE 60; RESP 18
[2019-03-02 02:05] VITALS: BP 119/71; PULSE 71; RESP 18
[2019-03-02] MEDS: PIPER-TAZO 3.375 GM IV (PMX) 100 ML IVPB SCH ×4 (05:19→23:04)
[2019-03-02] MEDS: KETOROLAC 15 MG INJ IV PRN ×3 (05:59→21:53)
[2019-03-02] MEDS: VANCOMYCIN 1.5 GM/NS 250 ML 250 ML IVPB SCH ×2 (06:01→17:44)
[2019-03-02 07:27] VITALS: BP 118/64; PULSE 58; RESP 16
[2019-03-02] MEDS: CIPROFLOXACIN HCL OTIC DROP 0.25 ML RIGHT EAR SCH ×2 (08:13→20:00)
[2019-03-02] MEDS: HYDROCODONE/APAP (10/325) TAB PO PRN (10:55)
[2019-03-02 14:00] VITALS: BP 114/63; PULSE 58; RESP 18
--- NOTE | 2019-03-02 15:48 | PN ---
Date/Time of Note Date/Time of Note DATE: 03/02/19 TIME: 15:47 Assessment/Plan VTE Prophylaxis Risk score (from Ns)>0 risk: 3 SCD applied (from Ns): Yes SCD contraindicated: low risk/ambulating Pharmacological prophylaxis: LMWH Lines/Catheters [facility] Type (from [facility] Peripheral IV Assessment/Plan Hospital Course A/P 1. Sepsis; cont atb and follow-up on cultures may need PEG. 2. Rt Mastoiditis w otitis. Drops added at ENT request. 3. Tobacco abuse 4. Recent URI S: 02/28 events noted 03/01: No distress. No fever. Tolerating antibiotics possibly home tomorrow on oral antibiotics 03/02 no fever nausea vomiting dyspnea. Some drainage from her right ear continues. O: vss PE no pallor reg s1s2 no mrg ctab bs+ nt nd no r r g no edema Result Diagram: 03/02/19 0439 03/02/19 0439 Results 24hrs Laboratory Tests Test 03/01/19 16:39 03/02/19 04:39 Vancomycin Level Trough 13.1 White Blood Count 7.0 # Red Blood Count 3.93 L Hemoglobin 12.1 Hematocrit 37.3 Mean Corpuscular Volume 94.9 Mean Corpuscular Hemoglobin 30.8 Mean Corpuscular Hemoglobin Concent 32.4 Red Cell Distribution Width 12.3 Platelet Count 142 Mean Platelet Volume 12.3 H Immature Granulocytes % 0.300 Neutrophils % 60.5 Lymphocytes % 30.1 Monocytes % 6.5 Eosinophils % 1.7 Basophils % 0.9 Nucleated Red Blood Cells % 0.0 Immature Granulocytes # 0.020 Neutrophils # 4.3 Lymphocytes # 2.1 Monocytes # 0.5 Eosinophils # 0.1 Basophils # 0.1 Nucleated Red Blood Cells # 0.0 Sodium Level 139 Potassium Level 4.1 Chloride Level 105 Carbon Dioxide Level 30 Anion Gap 4 L Blood Urea Nitrogen 15 Creatinine 0.97 Est Glomerular Filtrat Rate mL/min 59 L Glucose Level 101 Calcium Level 9.1 Total Bilirubin 0.6 Direct Bilirubin 0.00 Indirect Bilirubin 0.6 Aspartate Amino Transf (AST/SGOT) 38 Alanine Aminotransferase (ALT/SGPT) 41 Alkaline Phosphatase 53 Total Protein 6.7 Albumin 3.6 Globulin 3.10 Albumin/Globulin Ratio 1.16 Exam/Review of Systems Exam Vitals Vital Signs Date Temp Pulse Resp B/P (MAP) Pulse Ox O2 O2 Flow FiO2 Time Delivery Rate 03/02/19 97.8 58 16 118/64 94 07:27 (82) 03/01/19 Room Air 02:33 02/28/19 3.0 05:54 Intake and Output 03/01/19 03/01/19 03/02/19 1515:00 23:00 07:00 IntakeIntake Total 870 ml 670 ml 600 ml BalanceBalance 870 ml 670 ml 600 ml Results Results 24hrs Laboratory Tests Test 03/01/19 16:39 03/02/19 04:39 Vancomycin Level Trough 13.1 White Blood Count 7.0 # Red Blood Count 3.93 L Hemoglobin 12.1 Hematocrit 37.3 Mean Corpuscular Volume 94.9 Mean Corpuscular Hemoglobin 30.8 Mean Corpuscular Hemoglobin Concent 32.4 Red Cell Distribution Width 12.3 Platelet Count 142 Mean Platelet Volume 12.3 H Immature Granulocytes % 0.300 Neutrophils % 60.5 Lymphocytes % 30.1 Monocytes % 6.5 Eosinophils % 1.7 Basophils % 0.9 Nucleated Red Blood Cells % 0.0 Immature Granulocytes # 0.020 Neutrophils # 4.3 Lymphocytes # 2.1 Monocytes # 0.5 Eosinophils # 0.1 Basophils # 0.1 Nucleated Red Blood Cells # 0.0 Sodium Level 139 Potassium Level 4.1 Chloride Level 105 Carbon Dioxide Level 30 Anion Gap 4 L Blood Urea Nitrogen 15 Creatinine 0.97 Est Glomerular Filtrat Rate mL/min 59 L Glucose Level 101 Calcium Level 9.1 Total Bilirubin 0.6 Direct Bilirubin 0.00 Indirect Bilirubin 0.6 Aspartate Amino Transf (AST/SGOT) 38 Alanine Aminotransferase (ALT/SGPT) 41 Alkaline Phosphatase 53 Total Protein 6.7 Albumin 3.6 Globulin 3.10 Albumin/Globulin Ratio 1.16 Medications Medication Current Medications Vancomycin HCl (Vanco Iv Per Pharmacy) VANCOMYCIN PER PHARMACY PER PROTOCOL XX ; Start 02/28/19 at 04:00 IV Flush (NS 3 ml) 3 ml PER PROTOCOL IV ; Start 02/28/19 at 04:00 Ondansetron HCl (Zofran Inj) 4 mg Q6H PRN IV NAUSEA/VOMITING; Start 02/28/19 at 04:00 Acetaminophen (Tylenol Tab) 650 mg Q6H PRN PO .PAIN 1-3 OR TEMP; Start 02/28/19 at 04:00 Morphine Sulfate (morphine) 2 mg Q4H PRN IV .SEVERE PAIN 7-10 Last administered on 02/28/19 20:53; Admin Dose 2 MG; Start 02/28/19 at 04:00 Docusate Sodium (Colace) 100 mg Q12H PRN PO .CONSTIPATION Last administered on 03/02/19 05:59; Admin Dose 100 MG; Start 02/28/19 at 04:00 Bisacodyl (Dulcolax) 5 mg DAILY PRN PO .CONSTIPATION; Start 02/28/19 at 04:00 Ketorolac Tromethamine (Toradol) 15 mg Q6H PRN IV PAIN Last administered on 03/02/19 05:59; Admin Dose 15 MG; Start 02/28/19 at 07:30; Stop 03/03/19 at 07:29 Piperacillin Sod/ Tazobactam Sod 100 ml @ 200 mls/hr Q6 IVPB Last administered on 03/02/19 11:42; Admin Dose 200 MLS/HR; Start 02/28/19 at 09:30 Acetaminophen/ Hydrocodone Bitart ([place] (10/325)) 1 tab Q4H PRN PO MODERATE PAIN LEVEL 4-6 Last administered on 03/02/19 10:55; Admin Dose 1 TAB; Start 02/28/19 at 15:30 Vancomycin/Sodium Chloride 250 ml @ 83.333 mls/ hr Q12H IVPB Last administered on 03/02/19 06:01; Admin Dose 83.333 MLS/HR; Start 02/28/19 at 18:00 Ciprofloxacin HCl (Ciprofloxacin HCl Otic) 2 drop BID RIGHT EAR Last administered on 03/02/19 08:13; Admin Dose 2 DROP; Start 03/01/19 at 09:00; Stop 03/08/19 at 23:00 MORALES DEGROOT MD Mar 02, 2019 15:48
[2019-03-02 19:37] VITALS: BP 129/60; PULSE 54; RESP 17
[2019-03-03 02:00] VITALS: BP 134/72; PULSE 56; RESP 18
[2019-03-03] MEDS: HYDROCODONE/APAP (10/325) TAB PO PRN ×3 (03:20→19:48)
[2019-03-03] MEDS: PIPER-TAZO 3.375 GM IV (PMX) 100 ML IVPB SCH ×4 (05:33→23:12)
[2019-03-03] MEDS: VANCOMYCIN 1.5 GM/NS 250 ML 250 ML IVPB SCH ×2 (06:38→18:28)
[2019-03-03 08:26] VITALS: BP 132/76; PULSE 54; RESP 18
[2019-03-03] MEDS: CIPROFLOXACIN HCL OTIC DROP 0.25 ML RIGHT EAR SCH ×2 (09:21→20:31)
--- NOTE | 2019-03-03 12:20 | PN ---
Date/Time of Note Date/Time of Note DATE: 03/03/19 TIME: 12:14 Assessment/Plan VTE Prophylaxis [place] [facility] risk: 2 [place] applied [place] [facility] No SCD contraindicated: low risk/ambulating Pharmacological prophylaxis: NA/contraindicated Pharm contraindication: low risk/ambulating Lines/Catheters IV [facility] (from [facility] Saline Lock Assessment/Plan Hospital Course A/P 1. Sepsis? cont atb. may need picc. CONS bacteremia vs contaminant [1 bottle of both sets was +, however samples were drawn in ER]. At this point will cont IV atb another 48hrs and then home on po's after reviewing sensitivities. 2. Rt Mastoiditis w otitis. Drops added at ENT request. 3. Tobacco abuse 4. Recent URI 5. Subclinical Hypothyroidism S: 02/28 events noted 03/01: No distress. No fever. Tolerating antibiotics possibly home tomorrow on oral antibiotics 03/02 no fever nausea vomiting dyspnea. Some drainage from her right ear continues. 03/03: occ nausea; otherwise ok O: vss PE no pallor reg s1s2 no mrg ctab bs+ nt nd no r r g no edema Result Diagram: 03/03/19 0448 03/03/19 0448 Results 24hrs Laboratory Tests Test 03/03/19 04:48 White Blood Count 6.5 Red Blood Count 3.73 L Hemoglobin 11.7 L Hematocrit 35.4 L Mean Corpuscular Volume 94.9 Mean Corpuscular Hemoglobin 31.4 Mean Corpuscular Hemoglobin Concent 33.1 Red Cell Distribution Width 12.1 Platelet Count 147 Mean Platelet Volume 12.1 H Immature Granulocytes % 0.500 H Neutrophils % 57.8 Lymphocytes % 31.5 Monocytes % 7.3 Eosinophils % 2.0 Basophils % 0.9 Nucleated Red Blood Cells % 0.0 Immature Granulocytes # 0.030 Neutrophils # 3.7 Lymphocytes # 2.0 Monocytes # 0.5 Eosinophils # 0.1 Basophils # 0.1 Nucleated Red Blood Cells # 0.0 Sodium Level 140 Potassium Level 3.8 Chloride Level 107 Carbon Dioxide Level 26 Anion Gap 7 Blood Urea Nitrogen 11 Creatinine 0.97 Est Glomerular Filtrat Rate mL/min 59 L Glucose Level 99 Calcium Level 9.2 Total Bilirubin 0.5 Direct Bilirubin 0.00 Indirect Bilirubin 0.5 Aspartate Amino Transf (AST/SGOT) 52 H Alanine Aminotransferase (ALT/SGPT) 58 Alkaline Phosphatase 57 Total Protein 6.5 Albumin 3.5 Globulin 3.00 Albumin/Globulin Ratio 1.16 Exam/Review of Systems Exam Vitals Vital Signs Date Temp Pulse Resp B/P (MAP) Pulse Ox O2 O2 Flow FiO2 Time Delivery Rate 03/03/19 97.6 54 18 132/76 94 08:26 (94) 03/03/19 Room Air 02:00 02/28/19 3.0 05:54 Intake and Output 03/02/19 03/02/19 03/03/19 1515:00 23:00 07:00 IntakeIntake Total 1150 ml 590 ml 200 ml BalanceBalance 1150 ml 590 ml 200 ml Results Results 24hrs Laboratory Tests Test 03/03/19 04:48 White Blood Count 6.5 Red Blood Count 3.73 L Hemoglobin 11.7 L Hematocrit 35.4 L Mean Corpuscular Volume 94.9 Mean Corpuscular Hemoglobin 31.4 Mean Corpuscular Hemoglobin Concent 33.1 Red Cell Distribution Width 12.1 Platelet Count 147 Mean Platelet Volume 12.1 H Immature Granulocytes % 0.500 H Neutrophils % 57.8 Lymphocytes % 31.5 Monocytes % 7.3 Eosinophils % 2.0 Basophils % 0.9 Nucleated Red Blood Cells % 0.0 Immature Granulocytes # 0.030 Neutrophils # 3.7 Lymphocytes # 2.0 Monocytes # 0.5 Eosinophils # 0.1 Basophils # 0.1 Nucleated Red Blood Cells # 0.0 Sodium Level 140 Potassium Level 3.8 Chloride Level 107 Carbon Dioxide Level 26 Anion Gap 7 Blood Urea Nitrogen 11 Creatinine 0.97 Est Glomerular Filtrat Rate mL/min 59 L Glucose Level 99 Calcium Level 9.2 Total Bilirubin 0.5 Direct Bilirubin 0.00 Indirect Bilirubin 0.5 Aspartate Amino Transf (AST/SGOT) 52 H Alanine Aminotransferase (ALT/SGPT) 58 Alkaline Phosphatase 57 Total Protein 6.5 Albumin 3.5 Globulin 3.00 Albumin/Globulin Ratio 1.16 Medications Medication Current Medications Vancomycin HCl (Vanco Iv Per Pharmacy) VANCOMYCIN PER PHARMACY PER PROTOCOL XX ; Start 02/28/19 at 04:00 IV Flush (NS 3 ml) 3 ml PER PROTOCOL IV ; Start 02/28/19 at 04:00 Ondansetron HCl (Zofran Inj) 4 mg Q6H PRN IV NAUSEA/VOMITING; Start 02/28/19 at 04:00 Acetaminophen (Tylenol Tab) 650 mg Q6H PRN PO .PAIN 1-3 OR TEMP; Start 02/28/19 at 04:00 Morphine Sulfate (morphine) 2 mg Q4H PRN IV .SEVERE PAIN 7-10 Last administered on 02/28/19 20:53; Admin Dose 2 MG; Start 02/28/19 at 04:00 Docusate Sodium (Colace) 100 mg Q12H PRN PO .CONSTIPATION Last administered on 03/02/19 05:59; Admin Dose 100 MG; Start 02/28/19 at 04:00 Bisacodyl (Dulcolax) 5 mg DAILY PRN PO .CONSTIPATION; Start 02/28/19 at 04:00 Piperacillin Sod/ Tazobactam Sod 100 ml @ 200 mls/hr Q6 IVPB Last administered on 03/03/19 05:33; Admin Dose 200 MLS/HR; Start 02/28/19 at 09:30 Acetaminophen/ Hydrocodone Bitart ([place] (10/325)) 1 tab Q4H PRN PO MODERATE PAIN LEVEL 4-6 Last administered on 03/03/19 03:20; Admin Dose 1 TAB; Start 02/28/19 at 15:30 Vancomycin/Sodium Chloride 250 ml @ 83.333 mls/ hr Q12H IVPB Last administered on 03/03/19 06:38; Admin Dose 83.333 MLS/HR; Start 02/28/19 at 18:00 Ciprofloxacin HCl (Ciprofloxacin HCl Otic) 2 drop BID RIGHT EAR Last administered on 03/03/19 09:21; Admin Dose 2 DROP; Start 03/01/19 at 09:00; Stop 03/08/19 at 23:00 MORALES DEGROOT MD Mar 03, 2019 12:20
[2019-03-03 14:00] VITALS: BP 129/66; PULSE 50; RESP 17
[2019-03-03] MEDS: LACTOBACILLUS RHAMNOSUS CAP PO SCH (20:29)
--- NOTE | 2019-03-03 20:30 | RADRPT ---
Echocardiogram Report Patient Name: Cesario CHAUDHRYtient ID: [id number] : 1960 (58y 11m)Study Date: 03/03/2019 2:25:00 PM Gender: FAccession #: [id number] Tech: LE Location: [facility] Ref.Physician: MORALES DEGROOT Height(Cm): BSA: Weight(Kg): Quality: GoodOrder Physician: MORALES DEGROOT Account #: Procedures: Echocardiographic Report: Transthoracic echocardiogram with complete 2D, M-Mode, and doppler examination. Indications: Endocarditis. Measurements: 2D/M Mode Doppler Measurement Value Normal Range Measurement Value Normal Range LVIDd 2D 4.6 [ 3.8 - 5.2 ] cm AV Mean [place] 1.0 [ 70.0 - 90.0 ] cm/sec LVIDs 2D 3.1 [ 2.2 - 3.5 ] cm AV Mean PG 4.0 [ 2.0 - 4.0 ] mmHg LVPWd 2D 1.2 [ 0.6 - 0.9 ] cm AV Peak [place] 1.5 [ 100.0 - 170.0 ] cm/sec IVSd 2D 1.2 [ 0.6 - 0.9 ] cm AV Peak PG 9.0 [ 2.0 - 9.0 ] mmHg EDV 2D 98.8 [ 46.0 - 106.0 ] ml AV VTI 32.4 cm ESV 2D 39.1 [ 14.0 - 42.0 ] ml LVOT Peak [place] 1.1 [ 70.0 - 110.0 ] cm/sec EF 2D 60.4 [ 54.0 - 74.0 ] percent LVOT Peak PG 4.0 [ 2.0 - 6.0 ] mmHg LVOT Diam 2.0 [ 2.1 - 2.5 ] cm MV E Peak [place] 1.0 [ 60.0 - 130.0 ] cm/sec MV A Peak [place] 0.8 [ 100.0 - 120.0 ] cm/sec MV E/A 1.3 [ 0.8 - 1.5 ] ratio MV Decel Time 239 [ 104 - 258 ] msec Lat E` [place] 0.1 [ 10.0 - 15.0 ] cm/sec Lateral E/E` 11.0 [ 1.0 - 2.0 ] ratio Med E` [place] 0.1 cm/sec MV E/A 1.3 [ 0.8 - 1.5 ] ratio TR Peak [place] 2.6 [ 100.0 - 280.0 ] cm/sec TR Peak PG 27.0 mmHg PV Peak [place] 0.7 [ 40.0 - 80.0 ] cm/sec PV Peak PG 2.0 mmHg Findings: Left Ventricle: Normal left ventricular systolic function. Normal left ventricular cavity size. Mild concentric left ventricular hypertrophy. Ejection fraction is visually estimated at 60 %. Tissue Doppler/Mitral Doppler indices are consistent with pseudonormalization with mildly elevated left atrial pressure (Stage II diastolic dysfunction). Right Ventricle: Normal right ventricular size. Normal right ventricular systolic function. Left Atrium: There is mild enlargement of left atrium. Right Atrium: The right atrium is normal in size. Mitral Valve: Normal appearance of the mitral valve. Trace mitral regurgitation. Aortic Valve: No significant aortic stenosis or insufficiency. Aortic sclerosis without significant stenosis. Tricuspid Valve: Normal appearance of the tricuspid valve. The estimated Peak RVSP is 30 mmHg. There is mild tricuspid regurgitation. Pulmonic Valve: Normal pulmonic valve appearance. There is trace pulmonic regurgitation. Pericardium: Normal pericardium with no significant pericardial effusion. Aorta: Normal aortic root. IVC: Normal size and normal respiratory collapse consistent with normal right atrial pressure. Conclusions: Normal left ventricular systolic function. Normal left ventricular cavity size. Mild concentric left ventricular hypertrophy. Ejection fraction is visually estimated at 60 %. Tissue Doppler/Mitral Doppler indices are consistent with pseudonormalization with mildly elevated left atrial pressure (Stage II diastolic dysfunction). No significant valvular stenosis or regurgitation seen. The estimated Peak RVSP is 30 mmHg. Normal size and normal respiratory collapse consistent with normal right atrial pressure. Electronically Signed By: Hank Phelps 2019-03-03 20:29:30 PDT
[2019-03-03 20:34] VITALS: BP 121/61; PULSE 46; RESP 16
[2019-03-04 02:21] VITALS: BP 162/78; PULSE 53; RESP 18
[2019-03-04] MEDS: IBUPROFEN 800 MG TAB PO PRN ×3 (02:31→17:52)
[2019-03-04] MEDS: PIPER-TAZO 3.375 GM IV (PMX) 100 ML IVPB SCH ×4 (05:06→23:16)
[2019-03-04] MEDS: VANCOMYCIN 1.5 GM/NS 250 ML 250 ML IVPB SCH ×2 (06:00→17:54)
[2019-03-04] MEDS: LACTOBACILLUS RHAMNOSUS CAP PO SCH ×2 (07:47→20:16)
[2019-03-04] MEDS: CIPROFLOXACIN HCL OTIC DROP 0.25 ML RIGHT EAR SCH ×2 (07:48→20:16)
[2019-03-04 07:59] VITALS: BP 138/72; PULSE 60; RESP 18
[2019-03-04 14:00] VITALS: BP 121/59; PULSE 49; RESP 17
--- NOTE | 2019-03-04 15:34 | PN ---
Date/Time of Note Date/Time of Note DATE: 03/04/19 TIME: 15:32 Assessment/Plan VTE Prophylaxis Risk score (from Nsg)>0 risk: 1 Pharmacological prophylaxis: NA/contraindicated Pharm contraindication: low risk/ambulating Lines/Catheters IV Catheter Type (from Nrsg): Peripheral IV Assessment/Plan Hospital Course 1. Right-sided otitis media with perforation ENT consultation appreciated Continue IV antibiotics and drops Patient with continued discharge 2. Bacteremia Culture specifics pending, continue antibiotics 3. Tobacco abuse 4. Subclinical Hypothyroidism DC planning: Follow-up on culture specifics Result Diagram: 03/04/1952303/04/19523 Results 24hrs Laboratory Tests Test 03/04/19 05:24 White Blood Count 6.7 Red Blood Count 3.82 L Hemoglobin 11.9 L Hematocrit 36.0 L Mean Corpuscular Volume 94.2 Mean Corpuscular Hemoglobin 31.2 Mean Corpuscular Hemoglobin Concent 33.1 Red Cell Distribution Width 12.1 Platelet Count 150 Mean Platelet Volume 12.2 H Immature Granulocytes % 0.300 Neutrophils % 64.4 Lymphocytes % 26.4 Monocytes % 6.4 Eosinophils % 1.6 Basophils % 0.9 Nucleated Red Blood Cells % 0.0 Immature Granulocytes # 0.020 Neutrophils # 4.3 Lymphocytes # 1.8 Monocytes # 0.4 Eosinophils # 0.1 Basophils # 0.1 Nucleated Red Blood Cells # 0.0 Sodium Level 140 Potassium Level 3.7 Chloride Level 107 Carbon Dioxide Level 27 Anion Gap 6 Blood Urea Nitrogen 9 Creatinine 0.89 Est Glomerular Filtrat Rate mL/min > 60 Glucose Level 106 Calcium Level 9.4 Magnesium Level 2.0 Total Bilirubin 0.6 Direct Bilirubin 0.00 Indirect Bilirubin 0.6 Aspartate Amino Transf (AST/SGOT) 43 Alanine Aminotransferase (ALT/SGPT) 55 Alkaline Phosphatase 59 Total Protein 7.0 Albumin 3.7 Globulin 3.30 H Albumin/Globulin Ratio 1.12 Subjective 24 Hr Interval Summary ENT: other (Ear pain) Exam/Review of Systems Exam Vitals Vital Signs Date Temp Pulse Resp B/P (MAP) Pulse Ox O2 O2 Flow FiO2 Time Delivery Rate 03/04/19 97 Room Air 14:57 03/04/19 97.5 49 17 121/59 14:00 (79) Intake and Output 03/03/19 03/03/19 03/04/19 1515:00 23:00 07:00 IntakeIntake Total 590 ml 870 ml 500 ml BalanceBalance 590 ml 870 ml 500 ml Constitutional: alert, oriented Respiratory: clear to auscultation Cardiovascular: regular rate and rhythm Gastrointestinal: soft Musculoskeletal: nl extremities to inspection Results Results 24hrs Laboratory Tests Test 03/04/19 05:24 White Blood Count 6.7 Red Blood Count 3.82 L Hemoglobin 11.9 L Hematocrit 36.0 L Mean Corpuscular Volume 94.2 Mean Corpuscular Hemoglobin 31.2 Mean Corpuscular Hemoglobin Concent 33.1 Red Cell Distribution Width 12.1 Platelet Count 150 Mean Platelet Volume 12.2 H Immature Granulocytes % 0.300 Neutrophils % 64.4 Lymphocytes % 26.4 Monocytes % 6.4 Eosinophils % 1.6 Basophils % 0.9 Nucleated Red Blood Cells % 0.0 Immature Granulocytes # 0.020 Neutrophils # 4.3 Lymphocytes # 1.8 Monocytes # 0.4 Eosinophils # 0.1 Basophils # 0.1 Nucleated Red Blood Cells # 0.0 Sodium Level 140 Potassium Level 3.7 Chloride Level 107 Carbon Dioxide Level 27 Anion Gap 6 Blood Urea Nitrogen 9 Creatinine 0.89 Est Glomerular Filtrat Rate mL/min > 60 Glucose Level 106 Calcium Level 9.4 Magnesium Level 2.0 Total Bilirubin 0.6 Direct Bilirubin 0.00 Indirect Bilirubin 0.6 Aspartate Amino Transf (AST/SGOT) 43 Alanine Aminotransferase (ALT/SGPT) 55 Alkaline Phosphatase 59 Total Protein 7.0 Albumin 3.7 Globulin 3.30 H Albumin/Globulin Ratio 1.12 Medications Medication Current Medications Vancomycin HCl (Vanco Iv Per Pharmacy) VANCOMYCIN PER PHARMACY PER PROTOCOL XX ; Start 02/28/19 at 04:00 IV Flush (NS 3 ml) 3 ml PER PROTOCOL IV ; Start 02/28/19 at 04:00 Ondansetron HCl (Zofran Inj) 4 mg Q6H PRN IV NAUSEA/VOMITING; Start 02/28/19 at 04:00 Acetaminophen (Tylenol Tab) 650 mg Q6H PRN PO .PAIN 1-3 OR TEMP Last administered on 03/04/19at 07:47; Admin Dose 650 MG; Start 02/28/19 at 04:00 Morphine Sulfate (morphine) 2 mg Q4H PRN IV .SEVERE PAIN 7-10 Last administered on 02/28/19at 20:53; Admin Dose 2 MG; Start 02/28/19 at 04:00 Docusate Sodium (Colace) 100 mg Q12H PRN PO .CONSTIPATION Last administered on 03/02/19 05:59; Admin Dose 100 MG; Start 02/28/19 at 04:00 Bisacodyl (Dulcolax) 5 mg DAILY PRN PO .CONSTIPATION; Start 02/28/19 at 04:00 Piperacillin Sod/ Tazobactam Sod 100 ml @ 200 mls/hr Q6 IVPB Last administered on 03/04/19 11:26; Admin Dose 200 MLS/HR; Start 02/28/19 at 09:30 Acetaminophen/ Hydrocodone Bitart ([place] ()) 1 tab Q4H PRN PO MODERATE PAIN LEVEL 4-6 Last administered on 03/03/19 19:48; Admin Dose 1 TAB; Start 02/28/19 at 15:30 Vancomycin/Sodium Chloride 250 ml @ 83.333 mls/ hr Q12H IVPB Last administered on 03/04/19 06:00; Admin Dose 83.333 MLS/HR; Start 02/28/19 at 18:00 Ciprofloxacin HCl (Ciprofloxacin HCl Otic) 2 drop BID RIGHT EAR Last administered on 03/04/19 07:48; Admin Dose 2 DROP; Start 03/01/19 at 09:00; Stop 03/08/19 at 23:00 Lactobacillus Acidophilus/ Rhamnosus (Culturelle) 1 cap BID PO Last administered on 03/04/19 07:47; Admin Dose 1 CAP; Start 03/03/19 at 21:00 Ibuprofen (Motrin) 800 mg Q6H PRN PO MILD PAIN LEVEL 1-3 Last administered on 03/04/19 11:27; Admin Dose 800 MG; Start 03/03/19 at 12:30 MATHEW AMAYA Mar 04, 2019 15:34
[2019-03-04 20:37] VITALS: BP 143/81; PULSE 60; RESP 17
[2019-03-04] MEDS: HYDROCODONE/APAP (10/325) TAB PO PRN (22:51)
[2019-03-05 01:31] VITALS: BP 144/80; PULSE 52; RESP 18
[2019-03-05] MEDS: PIPER-TAZO 3.375 GM IV (PMX) 100 ML IVPB SCH ×2 (05:18→11:34)
[2019-03-05] MEDS: VANCOMYCIN 1.5 GM/NS 250 ML 250 ML IVPB SCH (05:55)
[2019-03-05 07:30] VITALS: BP 147/67; PULSE 52; RESP 18
[2019-03-05] MEDS: LACTOBACILLUS RHAMNOSUS CAP PO SCH (08:42)
[2019-03-05] MEDS: CIPROFLOXACIN HCL OTIC DROP 0.25 ML RIGHT EAR SCH (08:43)
[2019-03-05] MEDS: IBUPROFEN 800 MG TAB PO PRN (11:34)
--- NOTE | 2019-03-05 12:21 | PDOCDIS ---
Discharge Instructions CONDITION [id number] Patient Condition: [id number] Good HOME CARE INSTRUCTIONS: [id number] Diet Instructions: [id number] Reduced Calorie ACTIVITY: [id number] Activity Restrictions: [id number] No Restrictions FOLLOW UP/APPOINTMENTS Follow-up Plan FOLLOW UP WITH YOUR PCP IN 1-2 WEEKS MATHEW AMAYA Mar 05, 2019 12:21
--- NOTE | 2019-03-05 15:16 | DS ---
Date/Time of Note Date/Time of Note DATE: 03/05/19 TIME: 15:14 Discharge Summary Admission/Discharge Info Admit Date/Time Feb 28, 2019 at 03:29 Discharge Date/Time Mar 05, 2019 at 13:40 Discharge Diagnosis 1. Right-sided otitis media with perforation ENT consultation appreciated As post IV antibiotics and antibiotic drops 2. Bacteremia Possibly secondary to contamination Repeat cultures are negative Status post IV antibiotics 3. Tobacco abuse Cessation 4. Subclinical Hypothyroidism Outpatient follow-up 5. Morbid obesity Lifestyle changes Patient Condition: Good Hospital Course Patient is a 58-year-old female with a history of tobacco abuse, obesity who presents with right-sided otitis media with perforation. Patient was seen by ENT and recognition was to add antibiotic drops. Patient did have blood cultures positive for coag negative staph which she received IV antibiotics for, repeat cultures were negative. Patient stable for DC, on the day of discharge patient's vitals, labs and physical exam are stable. Home Meds Active Scripts Hydrocodone/Acetaminophen ([place] 5-325 Tablet) 1 Each Tablet, 1 TAB PO Q6H PRN for PAIN, #12 TAB Prov:TRES FIGUEROA MD 02/27/19 Ibuprofen* (Motrin*) 600 Mg Tab, 600 MG PO Q8, #20 TAB Prov:TRES FIGUEROA MD 02/27/19 Amoxicillin/Potassium Clav (Amox-Clav 875-125 mg Tablet) 875-125 mg Tab, 1 TAB PO BID for 7 Days, #14 TAB Prov:TRES FIGUEROA MD 02/27/19 Follow-up Plan FOLLOW UP WITH YOUR PCP IN 1-2 WEEKS Primary Care Provider Care Physician No Primary Time spent on discharge: > 30 minutes MATHEW AMAYA Mar 05, 2019 15:16
== END 2019-03-05 13:40 | disposition home or self-care (01) | DRG 872 ==
LOC: FTE 19:39 → MS3 02-28 03:29
PROVIDERS: ADMIT Family Medicine; ATTEND Internal Medicine
DX: A41.9 Sepsis, unspecified organism (principal); H70.001 Acute mastoiditis without complications, right ear; H66.91 Otitis media, unspecified, right ear; H72.91 Unspecified perforation of tympanic membrane, right ear; F17.200 Nicotine dependence, unspecified, uncomplicated; E02 Subclinical iodine-deficiency hypothyroidism; E66.01 Morbid (severe) obesity due to excess calories; Z68.36 Body mass index [BMI] 36.0-36.9, adult
CPT/HCPCS: 36415; 70480; 71045; 80053; 80061; 80202; 83036; 83605; 83735; 84439; 84443; 84480; 85025; 85610; 85730; 93306; 96374; 96375; 96376; J1885; J2270; J2405; J2543; J3370; J7030; J7040